=== PATIENT | male | born 2000 | race Caucasian/White ===

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

== ENCOUNTER → 2019-02-01 | Outpatient (CLI) | payer OTHER ==
--- NOTE | 2019-02-01 11:21 | Diagnostic Imaging Report ---
INDICATION: Right knee pain COMPARISON: None available. TECHNIQUE: 3 radiographs of the right knee 02/01/2019 FINDINGS: No acute fracture or dislocation. Joint spaces are well-maintained. No joint effusion. Mild prepatellar soft tissue swelling. No suspicious radiopaque foreign body. Impression: No acute osseous abnormality with mild prepatellar soft tissue swelling. Dictated by: Dictated on workstation # [id number]
== END ==
LOC: RAD FS 08:28
PROVIDERS: ATTEND Nurse Practitioner
DX: M25.461 Effusion, right knee (principal)
CPT/HCPCS: 73562

== ENCOUNTER 2019-06-01 21:18 | Emergency (ER) | payer OTHER ==
[~2019-06-01] VITALS: Ht 188 cm; Wt 102.1 kg
[2019-06-01] MEDS ORDERED: IBUPROFEN 800 MG (MOTRIN) TAB PO ONE ×2 (22:03→22:15)
--- NOTE | 2019-06-01 22:18 | ED EENT ---
History of Present Illness General Chief Complaint: Cough/Cold/Flu Symptoms Stated Complaint: SORE THROAT,FEVER,CHILLS,DIZZINESS Nursing Triage Note: PT AMBULATE TO ROOM FS05 WITH C/O DIZZYNESS,SORE THROAT, FEVER, CHILLS, AND BILAT EAR PAIN X3 DAYS. PT STATES HE TOOK IBUPROFEN THIS MORNING. Source: patient History of Present Illness Date Seen by Provider: Jun 01, 2019 Time Seen by Provider: 22:18 Initial Comments 18-year-old male presenting with complaints of 3 days of ear pain, dizzy, sore throat, fever and chills. He is having pain with swallowing due to the sore throat. He has drainage and congestion down the back of his throat. He denies having any definite ill contacts that he is aware of. He has tried some ibuprofen for pain and fever with minimal improvement. He states that his fever has gotten up to around 101-101.5 F. He has pain in his neck was swollen lymph nodes as well. He denies having any cough or shortness of breath. He has no nausea or vomiting. He has had no change in his bowels or urination. He states that he has not been eating well because of it hurting too much to swallow Allergies and Home Medications Allergies Coded Allergies: latex (Verified Allergy, Unknown, 06/01/19) Patient Home Medication List Home Medication List Reviewed: Yes Review of Systems Review of Systems Constitutional: chills, dizziness, fever, malaise Eyes: Denies Blurred Vision Ears: Dizziness, Pain; Denies Tinnitus, Denies Bloody Discharge, Denies Clear Discharge, Denies Purulent Discharge, Denies Serosanguinous Discharge Nose: congestion; denies epistaxis, denies bloody discharge; clear discharge Mouth: no symptoms reported Throat: pain, swelling, hoarse, painful swallowing Respiratory: No cough Cardiovascular: no symptoms reported Gastrointestinal: no symptoms reported Musculoskeletal: neck pain (with swollen lymph nodes in the anterior neck) Skin: No rash Neurological: Headache Hematologic/Lymphatic: Swollen Glands (anterior neck) Immunological/Allergic: no symptoms reported Past Zjqapvh-Nbhqgc-Cqadrx Hx Past Med/Social Hx: Reviewed Nursing Past Med/Soc Hx Patient Social History Alcohol Use: Denies Use Recreational Drug Use: No Smoking Status: Never a Smoker 2nd Hand Smoke Exposure: No Recent Foreign Travel: No Contact w/Someone Who Travel: No Recent Infectious Disease Expo: No Recent Hopitalizations: No Seasonal Allergies Seasonal Allergies: No Past Medical History Surgeries: No Respiratory: No Cardiac: No Neurological: No Genitourinary: No Gastrointestinal: No Musculoskeletal: No Endocrine: No HEENT: No Cancer: No Psychosocial: No Integumentary: No Blood Disorders: No Physical Exam Vital Signs Vital Signs - First Documented 06/01/19 23:01 Pulse Ox 100 Height, Weight, BMI Height: '" Weight: lbs. oz. kg; 28.00 BMI Method: General Appearance: WD/WN, mild distress (appears to not feel well) Eyes: bilateral eye PERRL, bilateral eye EOMI Ears: bilateral ear auricle normal, bilateral ear canal normal, bilateral ear TM normal, bilateral ear tenderness, bilateral ear other (small amount of clear effusion bilaterally. There is no redness or bulging on either TM) Mouth/Throat: pharynx swelling, pharynx tenderness; No tonsillar exudate; uvula swelling Neck: full range of motion, supple, lymphadenopathy (R), lymphadenopathy (L) Cardiovascular: normal peripheral pulses, regular rate, rhythm Respiratory: chest non-tender, lungs clear, normal breath sounds, no respiratory distress, no accessory muscle use Gastrointestinal: normal bowel sounds, non tender, soft, no pulsatile mass Neurologic/Psychiatric: alert, normal mood/affect, oriented x 3 Skin: normal color, warm/dry; No rash Progress/Results/Core Measures Results/Orders Lab Results Laboratory Tests Test 06/01/19 21:40 Range/Units Group A Streptococcus Screen NEGATIVE NEGATIVE Micro Results Microbiology 06/01/19 Influenza Types A,B Antigen (DANIELE) - Final, Complete My Orders Orders - MARCELO SNOW MD Rapid Strep A Screen (06/01/19 21:33) Influenza A And B Antigens (06/01/19 21:33) Ibuprofen Tablet (Motrin Tablet) (06/01/19 22:15) Ibuprofen Tablet (Motrin Tablet) (06/01/19 22:03) Penicillin G Benzathine Inject (Bicillin (06/01/19 22:34) Dexamethasone Injection (Decadron Inject (06/01/19 22:34) Rx-Hydrocodone/Apap 5-325 Mg (Rx-Vicodin (06/01/19 22:45) Medications Given in ED Current Medications Medications Dose Ordered Sig/[place] Route Start Time Stop Time Status Last Admin Dose Admin Acetaminophen/ Hydrocodone Bitart 1 ea Q6H PRN PO 06/01/19 22:45 06/01/19 23:01 DC 06/01/19 22:54 1 EA Ibuprofen 800 mg ONCE ONCE PO 06/01/19 22:15 06/01/19 22:16 DC 06/01/19 22:08 800 MG Vital Signs/I&O 06/01/19 06/01/19 06/01/19 21:50 21:50 23:01 Temp 38.1 37.9 Pulse 78 82 Resp 16 17 B/P (MAP) 129/80 Pulse Ox 100 O2 Delivery Room Air Room Air Room Air Progress Progress Note : Progress Note Influenza and strep swab were both negative. However with his edematous and erythematous posterior pharynx with drainage and pain with swallowing will give Bicillin shot as well as dexamethasone to help with swelling and pain. If he does have strep this would help to cover for that rather than wait for the culture. Counseled patient to push fluids and rest. Make sure that he is using Chloraseptic [place] or salt water gargles to help with his throat pain. Send with a few pain pills to help for severe pain until he can have the steroid and antibiotic kick in. Counseled on follow-up and return precautions. Departure Impression Primary Impression: Acute infective pharyngitis Additional Impressions: Fever and chills Acute pain of both ears Disposition: 01 HOME, SELF-CARE Condition: Stable Departure-Patient Inst. Decision time for Depature: 22:37 Referrals: NO,LOCAL PHYSICIAN (PCP) Primary Care Physician [facility] [place] Patient Instructions: Sore Throat, Adult (DC), Fever, Adult (DC) Add. Discharge Instructions: The antibiotic shot and steroid shot will help with your throat pain and swelling and treat you for strep throat. You have to keep sipping on fluids or use popsicles or frozen drinks to help keep hydrated and make sure you are getting fluids. You could start eating soft foods as you tolerate them. Consider using Chloraseptic spray over the counter to help with throat pain. You could also do warm salt water gargles to help with your throat pain. Return or check with clinic if having worsening symptoms or not improving after another 36 to 48 hours All discharge instructions reviewed with patient and/or family. Voiced understanding. Work/School Note: School/Childcare Release, Date Seen in the Emergency Department: Jun 01, 2019 Time Dismissed from Emergency Department: 23:00 Return to School: Jun 03, 2019 Restrictions: Return-No Fever (24hrs) Work Release Form Date Seen in the Emergency Department: Jun 01, 2019 Return to Work: Jun 03, 2019 Restrictions: Return-No Fever (24hrs) MARCELO SNOW MD Jun 01, 2019 22:18
[2019-06-01] MEDS ORDERED: PEN G BENZ (BICILLIN LA) 1.2 M UN/2 ML SYR IM STA (22:34)
[2019-06-01] MEDS ORDERED: DEXAMETHASONE 10 MG/ML (DECADRON) 1 ML VIAL IM STA (22:34)
[2019-06-01] MEDS ORDERED: RX-HYDROCODONE/APAP 5/325 MG #4 TAB PK PO PRN (22:45)
== END 2019-06-01 23:01 | disposition home or self-care (01) ==
LOC: EDUNIT# 21:18 → ER FS 21:20
DX: J02.9 Acute pharyngitis, unspecified (principal); H92.03 Otalgia, bilateral; Z91.040 Latex allergy status
CPT/HCPCS: 87430; 87804